=== PATIENT | female | born 1990 | race Caucasian/White ===

== ENCOUNTER 2022-07-07 19:28 | Outpatient (CLI) | payer BC, SELFPAY ==
[2022-07-07 19:35] VITALS: TEMP 37.1
[2022-07-07 19:43] VITALS: BP 125/67; PULSE 106
[2022-07-07 19:54] VITALS: PULSE 108; O2SAT 98
[2022-07-07 19:58] VITALS: BP 132/68; PULSE 102
[2022-07-07 20:28] VITALS: BP 130/82; PULSE 99
[2022-07-07 20:38] LABS: Hematocrit 33.8 % (33.0-51.0); Hemoglobin* 11.4 gm/dL (12.0-16.0); Mean Corpuscular HGB Conc 34 gm/dL (32-36); Mean Corpuscular Hemoglobin 28 pg (26-34); Mean Corpuscular Volume 83 fL (80-100); Platelet Count* 381 K/uL (140-440); Red Blood Count 4.08 m/uL (4.00-5.20); White Blood Count* 14.65 K/uL (4.50-11.00)
[2022-07-07 20:41] LABS: Slide Review Reflex No
[2022-07-07 20:59] LABS: Total Protein Urine 10 mg/dL
[2022-07-07 20:59] LABS: Alanine Aminotransferase* 15 U/L (4-35); Aspartate Amino Transferase* 22 U/L (12-35); Blood Urea Nitrogen* 7 mg/dL (5-24); Creatinine* 0.5 mg/dL (0.5-1.5); Estimated Glomerular Filt Rate 127 ml/min
[2022-07-07 21:01] LABS: Creatinine Urine 51.8 mg/dL
[2022-07-07 21:15] LABS: INR 0.95 (0.91-1.10)
[2022-07-07 21:16] LABS: Fibrinogen* 565 mg/dL (200-450)
--- NOTE | 2022-07-07 21:49 | PC.OBNST ---
NST Note NST Note Start: 07/07/22 19:29 Freq: ONCE Status: Active Protocol: Document 07/07/22 21:31 [facility] (Rec: 07/07/22 21:34 [facility] [id number]) NST Note 11 Para (# of births) 6 EDC 08/08/22 Patient Presented with Complaint(s) of Headache,Other Other Complaints Pt experienced elevated BP's at home with RUQ pain and headache Reactive Yes Appropriate for Gestational Age Yes JEFF Pinzon Date 07/07/22 Reactive Yes Appropriate for Gestational Age Yes JEFF Moncada Date 07/07/22 OB NST charge Yes The provider's electronic signature indicates the NST is reactive/appropriate for gestational age. *Note to provider: If an addendum is required, open the patient's chart and click on the note under the Nurse/Allied Health tab.
== END 2022-07-07 21:33 | disposition home or self-care (01) ==
LOC: OB OUT 19:29 → OB 21:13
PROVIDERS: Family Medicine; PCP Family Medicine; Visit Provider Family Medicine
DX: O10.913 Unspecified pre-existing hypertension complicating pregnancy, third trimester (principal)
CPT/HCPCS: 36415; 59025; 82565; 82570; 84156; 84450; 84460; 84520; 85027; 85384; 85610; 99213

== ENCOUNTER 2022-07-18 19:55 | Inpatient (IN) | payer BC, SELFPAY ==
[2022-07-18] VITALS (13 sets, daily range): BP systolic 108–147; BP diastolic 62–90; PULSE 104–125; TEMP 36.8; O2SAT 97; BMI 47.3
[2022-07-18 17:58] LABS: Hematocrit 33.6 % (33.0-51.0); Hemoglobin* 11.4 gm/dL (12.0-16.0); Mean Corpuscular HGB Conc 34 gm/dL (32-36); Mean Corpuscular Hemoglobin 28 pg (26-34); Mean Corpuscular Volume 83 fL (80-100); Platelet Count* 353 K/uL (140-440); Red Blood Count 4.05 m/uL (4.00-5.20); White Blood Count* 14.21 K/uL (4.50-11.00)
[2022-07-18 18:23] LABS: Slide Review Reflex No
[2022-07-18 18:29] LABS: Alanine Aminotransferase* 10 U/L (4-35); Aspartate Amino Transferase* 19 U/L (12-35); Blood Urea Nitrogen* 9 mg/dL (5-24); Creatinine* 0.5 mg/dL (0.5-1.5); Estimated Glomerular Filt Rate 127 ml/min
[2022-07-18 18:30] LABS: Total Protein Urine 7 mg/dL
[2022-07-18 18:31] LABS: Creatinine Urine 94.1 mg/dL
--- NOTE | 2022-07-18 20:39 | P.OBHP_ITS ---
OB - H&P: HPI Labor/Induction History of Present Illness Date Seen: 07/18/22 Chief Complaint: The patient is a 31 year old 10 para 6036 at 37+0 weeks gestation by 1st trimester US, who presents with elevated BP readings. She had a BP of 138/91 in clinic this afternoon. She reports similar readings at home and she has a history of gestational HTN. She was observed at the center for 4 hours at continued to have elevated BP readings 140s/90s. She has a mild headache and tr leatha edema as well as RUQ pain. Labs including Creatinine, ALT, AST, prot/cr and CBC are normal. Chief complaint: Maternity : 10 Para: 6 Date of last menstrual period: 11/02/21 Estimated date of delivery: 08/09/22 Gestational age based on last menstrual period: 36 Indications for induction: induced hypertension Narrative: Shayla Murcia is a 31 year old 10 para 6036 at 37+0 weeks gestation by 1st trimester US, who presents with elevated BP readings. She had a BP of 138/91 in clinic this afternoon. She reports similar readings at home and she has a history of gestational HTN. She was observed at the center for 4 hours at continued to have elevated BP readings 140s/90s. She has a mild headache and trace edema as well as RUQ pain. Labs including Creatinine, ALT, AST, prot/cr and CBC are normal. History of Present Dating criteria: based on 1st trimester US only care: good care Ultrasounds: normal 1st trimester US and normal mid trimester US Abnormal ultrasound findings: LGA EFW 3316g on 07/12/22 (90%) complications: gestational hypertension Labs Blood type: 0 (-) negative Rubella: immune RPR/VDLR: nonreactive GBS status: negative HBsAG: negative Review of Systems Status of ROS: Reports: 6 or more systems reviewed and unremarkable except as noted in History and below Meds Home Medications and Allergies Home Medications Medication Instructions Recorded Confirmed Type albuterol sulfate 90 mcg/actuation 2 puff inhalation .as needed 07/07/22 07/18/22 History aerosol inhaler (Ventolin HFA) ondansetron 4 mg disintegrating 4 mg translingual .as needed 07/07/22 07/18/22 History tablet OB - H&P: Exam Physical Exam: Vital signs: Temp Pulse BP Pulse Ox 98.3 F 125 H 139/90 H 97 07/18/22 17:20 07/18/22 19:45 07/18/22 19:45 07/18/22 17:21 Constitutional: Constitutional: no acute distress Routine HEENT Exam: Head: Present atraumatic and normal inspection Eye: Present EOMI ENT: Present mucous membranes moist Routine Neck Exam: Neck: Present full ROM Routine Respiratory Exam: Respiratory: Present CTA bilaterally Routine Cardiovascular Exam: Cardiovascular: RRR Detailed Abdominal Exam: Comments: Gravid appropriate for gestational age, EFW 8# Detailed Labor and Delivery Exam: Dilation (cm): 1 Effacement (%): 50 Cervix position: mid Consistency: soft Contraction frequency (min): 0 Tachysystole: No Fetus (Single): Station: -3 Routine Neurological Exam: Present alert, oriented X3 and CN II-XII intact Routine Psychiatric Exam: Present normal affect and normal thought process OB - Results Labs Labs: Short CBC 07/18/22 Range/Units 17:50 WBC 14.21 H (4.50-11.00) K/uL Hgb 11.4 L (12.0-16.0) gm/dL Hct 33.6 (33.0-51.0) % Plt Count 353 (140-440) K/uL BMP 07/18/22 17:50 BUN 9 Creatinine 0.5 Liver Function 07/18/22 Range/Units 17:50 AST 19 (12-35) U/L ALT 10 (4-35) U/L OB - Problem Based A/P Additional Plan (1) Gestational hypertension: Status: Acute (2) Term : Status: Acute Plan Cook catheter placed with 60 mL in both intrauterine and intravaginal balloons. Start low dose pitocin at midnight. AROM vs pitocin induction in AM Delivery/Labor/Induction Plan Plan: induction Induction method: Intracervical balloon catheter
[2022-07-18 21:25] LABS: Basophils Percent Auto 0.1 % (0.0-3.0); Eosinophils Percent Auto 1.3 % (0.0-7.0); Hematocrit 33.8 % (33.0-51.0); Hemoglobin* 11.4 gm/dL (12.0-16.0); Immature Granulocytes Abs Auto 0.15 K/uL (0.00-0.30); Lymphocytes Percent Auto 18.1 % (20-44); Mean Corpuscular HGB Conc 34 gm/dL (32-36); Mean Corpuscular Hemoglobin 28 pg (26-34); Mean Corpuscular Volume 83 fL (80-100); Monocytes Percent Auto 5.3 % (0.0-11.0); Neutrophils Percent Auto 74.3 % (42.0-72.0); Platelet Count* 362 K/uL (140-440); RDW Coefficient of Variation % 13.2 % (11.5-15.5); Red Blood Count 4.08 m/uL (4.00-5.20); White Blood Count* 15.81 K/uL (4.50-11.00)
[2022-07-18 21:43] LABS: Slide Review Reflex No
[2022-07-18 22:42] LABS: SARS PCR* Negative SARS-CoV-2 (Negative)
[2022-07-19] VITALS (36 sets, daily range): BP systolic 106–151; BP diastolic 65–102; PULSE 75–146; RESP 16–18; TEMP 36.4–36.9; O2SAT 94–100
[2022-07-19] MEDS: TERBUTALINE 1 MG/ML INJ 0.25 MG SUBCUT (01:20)
[2022-07-19] MEDS: LACTATED RINGERS 1000 ML 1,000 ML 125 ML IV ×2 (01:56→05:28)
--- NOTE | 2022-07-19 02:02 | P.OBCN_ITS ---
OB - CN: HPI Date of Consult Time Seen by Provider: 01:10 Date Seen: 07/19/22 Patient: Cate Patient Consult date: 07/19/22 Requesting Physician: Sophia Solomon MD Primary Care Provider: Sophia Solomon MD Consult Narrative Narrative: Shayla is a 31 year old G 11 P 6 at 37 weeks 1 day gestation that was admitted to the Center on 07/18/22 for cervical ripening followed by induction of labor for gestational hypertension. Sophia Solomon MD placed a Cook catheter at approximately 8:00 p.m. which fell out at approximately midnight and when the nurse was going to start Pitocin she was concerned that the fetus may have turn to breech presentation. Dr. Solomon did a bedside ultrasound and noted the fetus to be in lakshmi breech presentation. Dr. Solomon asked for a consultation to discuss options: 1. attempt external cephalic version followed by Pitocin and rupture of membranes if successful. 2. If the ECV is not successful than primary low-transverse . Or 3. No ECV in go directly to primary low- transverse . The patient would prefer to attempt ECV as this is her 7th and she has had all vaginal deliveries. I reviewed how an ECV is performed and discussed risks with her including onset of labor, ruptured membranes, placental abruption and possible distress. Patient's questions were answered and consent form signed for ECV. See Dr. Solomon's history and physical note for complete details. History of Present complications: gestational hypertension History History 10 Elective abortions Para 6 Spontaneous abortions Hx # Term Pregnancies Ectopic pregnancies Hx # Pregnancies Multiple births Number of Living Children 6 Labs Blood type: 0 (-) negative Rubella: immune RPR/VDLR: nonreactive GBS status: negative HBsAG: negative OB Labs: Lab Assessment Start: 07/18/22 20:48 Freq: ONCE Status: Complete Protocol: PC.OBGBS Activity Type Activity Date Activity User E-sign Co-sign Detail Recorded Client Recorded Date Recorded By Document 07/18/22 20:52 [facility] [id number] 07/18/22 20:53 CUDDY 07/18/22 20:52 Lab Assessment GBS Negative Previous [place] with Invasive GBS No Does Patient Meet Criteria No No Treatment Needed OK Maternal Blood Type O Maternal RH Factor Negative Evaluate Maternal Rubella Immune Status Immune Hepatitis B Surface Antigen Negative Maternal HIV Status Negative Maternal Syphillis (RPR) Status Negative Are Labs Available Yes [facility] Medical History (Updated 07/19/22 @ 02:17 by Yolanda Spring MD) Breech presentation Successful external cephalic version Social History Smoking Status: Never smoker Meds Home Medications and Allergies Home Medications Medication Instructions Recorded Confirmed Type albuterol sulfate 90 mcg/actuation 2 puff inhalation .as needed 07/07/22 07/18/22 History aerosol inhaler (Ventolin HFA) ondansetron 4 mg disintegrating 4 mg translingual .as needed 07/07/22 07/18/22 History tablet Allergies Allergy/AdvReac Type Severity Reaction Status Date / Time amoxicillin Allergy Unknown Verified 07/18/22 21:40 latex Allergy Unknown Verified 07/18/22 21:40 paroxetine Allergy Unknown Verified 07/18/22 21:40 Penicillins Allergy Unknown Verified 07/18/22 21:40 sertraline Allergy Unknown Verified 07/18/22 21:40 vancomycin Allergy Unknown Verified 07/18/22 21:40 OB - H&P: Exam Physical Exam: Vital signs: Temp Pulse Resp BP Pulse Ox 98.5 F 102 H 18 147/94 H 97 07/19/22 00:54 07/19/22 00:54 07/19/22 00:54 07/19/22 00:54 07/18/22 17:21 Narrative: General: Pleasant, , comfortable woman in no acute distress. Vital signs per electronic medical record Bedside ultrasound: Breech presentation with head in the right upper quadrant with body in toward the left side of the patient with breech in the left lower quadrant. Procedure: External cephalic version Patient was placed in the dorsal supine position with a slight incline. The patient received terbutaline 10 minutes before attempting ECV. A large amount of ultrasound gel was placed in the patient's abdomen. Dr. Solomon placed her hands over the head and I placed my hand under the breech and attempted a counter clockwise roll. The head slowly moved to the pelvis and became vertex after 4 attempts. The patient tolerated this well. The heart beat was note to be in the 120's between each attempt at turning the baby. Verbal consent obtaine to perform AROM. TOCO: after terbutaline: Q5min. EFW: Baseline 130-140bpm, moderate variabilty. (+) accels. Variable deceler ations (After AROM) to the 110-120's. Category 2. SVE: 5/50%/-3 AROM: copious amount of clear fluid. OB - Results Labs Labs: Short CBC 07/18/22 07/18/22 Range/Units 17:50 21:16 WBC 14.21 H 15.81 H (4.50-11.00) K/uL Hgb 11.4 L 11.4 L (12.0-16.0) gm/dL Hct 33.6 33.8 (33.0-51.0) % Plt Count 353 362 (140-440) K/uL BMP 07/18/22 17:50 BUN 9 Creatinine 0.5 Liver Function 07/18/22 Range/Units 17:50 AST 19 (12-35) U/L ALT 10 (4-35) U/L OB - CN: A/P Assessment and Plan (1) Gestational hypertension: Status: Acute (2) Term : Status: Acute (3) Breech presentation: Status: Acute (4) Successful external cephalic version: Status: Acute
--- NOTE | 2022-07-19 02:32 | PM.OBPNL ---
Pain Control Date Seen: 07/19/22 Pain control: tolerating well Comments: After cook catheter came out, baby was noted to be breech. Underwent ECV with Dr. Spring. Subsequently, had AROM with copius clear fluid. Was initially having early and variable decels. Now reactive strip. Contractions Monitor mode: Internal Contraction frequency: 4 Contraction pattern: Regular Contraction intensity: Moderate Pelvic Exam Dilation (cm): 5 Effacement (%): 50 Station: -3 Fetus (Single) Amniotic Membrane Status: AROM status: Category l Assessment and Plan Assessment: induction ongoing Plan: continue present management and begin Pitocin augmentation
[2022-07-19] MEDS: OXYTOCIN 30 unit/500 ML in NS 30 UNIT/500 ML BAG IVPB (03:02)
[2022-07-19] MEDS: ONDANSETRON 2 MG/ML inj 4 MG IV ×2 (03:24→09:21)
[2022-07-19] MEDS: LACTATED RINGERS 1000 ML 1,000 ML 985 ML IV (06:50)
--- NOTE | 2022-07-19 09:34 | PM.OBPNL ---
Pain Control Date Seen: 07/19/22 Pain control: other Comments: Patient has been doing well overnight. Have been trying to augment labor with pitocin, however will get occasional runs of variable decelerations. Cervix remains largely unchanged over the last 4 hours, but contractions have not been consistently adequate. Contractions Monitor mode: Internal Contraction frequency: 3 Contraction pattern: Regular Contraction intensity: Moderate Pelvic Exam Dilation (cm): 8 Effacement (%): 80 Station: -1 Fetus (Single) Amniotic Membrane Status: AROM status: Category ll Comments: early and variable decelerations to 90 Assessment and Plan Pitocin rate (mU/min): 6 Assessment: active labor and induction ongoing Plan: continue present management
--- NOTE | 2022-07-19 11:40 | PM.OBPNL ---
Pain Control Time Seen by Provider: 11:40 Date Seen: 07/19/22 Pain control: tolerating well Comments: Patient has been doing well. IUPC came out and contractions difficult to monitor. Minimal cervical change, so IUPC replaced to help titrate pitocin. Patient now more uncomfortable with contractions. Contractions Monitor mode: Internal Contraction frequency: 3 Contraction pattern: Regular Contraction intensity: Moderate Pelvic Exam Dilation (cm): 8 Effacement (%): 80 Station: 0 Fetus (Single) Amniotic Membrane Status: AROM status: Category ll Comments: Occasional variable decels Assessment and Plan Pitocin rate (mU/min): 9 Assessment: active labor Plan: continue present management
[2022-07-19] MEDS: CEFAZOLIN 3 GM in 0.9 % SODIUM CHLORIDE Mini-bag 100 ML IVPB (14:25)
[2022-07-19] MEDS: KETOROLAC 30 MG/ML inj IVP ×2 (15:29→21:30)
--- NOTE | 2022-07-19 16:16 | P.NB_ITS ---
Nerve Block Nerve Block Time Seen by Provider: 15:45 Date Seen: 07/19/22 Type of block requested by surgeon for post-operative analgesia: TAP Side: bilateral Time out performed: Yes Verification of patient name: Yes Verification of date of : Yes Site marking: site marked Name of person performing procedure: CK Ruth Continuous monitoring Was continuous monitoring of O2 sat, B/P, quality assurance monitor body, recorded every 15 minutes?: Yes Procedure Checklist: sterile prep, needles and gloves Ultrasound guided. Images saved: Yes Medications given in 5ml increments after negative aspiration: Marcaine (20 ml/side 40 ml total) %: 0.25 mL: 40 Needle gauge: 20 and Exparel (5 ml/Side 10 total) mL: 10 Needle gauge: 20 Patient tolerated procedure well: Yes Block Charges Block Charge (with Pro Fee): TAP Bilateral Use of Ultrasound Machine for Block: Yes- US Guidance/pain block
--- NOTE | 2022-07-19 17:22 | PM.OBCN1 ---
OB - CN: HPI Date of Consult Date Seen: 07/19/22 Patient: Cate Patient Consult date: 07/19/22 Requesting Physician: Sophia Solomon MD Primary Care Provider: Sophia Solomon MD Consult Narrative Reason for consult: arrest of labor Narrative: The patient is a 31 year old G 11 P 6 woman at 37 weeks, 1 day gestation who presented yesterday for induction of labor for weeks gestation that was admitted to the Center on 07/18/22 for induction of labor for gestational hypertension. Thus far, she has had cervical ripening with Cook catheter. Fetus was then found to be in breech presentation, and had successful external cephalic version with Dr. Spring. Thereafter, she progressed to 8 cm dilation, but has not progressed beyond this for 5+ hours at the time of my assessment. Her contractions have been adequate. She is unmedicated. is otherwise complicated by/notable for: 1. Suspected LGA fetus on 07/12/2022, EFW 90% 2. Rh-negative status 3. Grand multiparity. 5 previous vaginal births. 4. Jehova's Witness; will not accept blood products 5. Asthma, treated with prn Hemabate. 6. Gestational HTN as above. Normal HELLP labs. She has received her care with Dr. Solomon this . tracing has been category 2, notable for intermittent variable decelerations, normal baseline and moderate variability. History of Present complications: gestational hypertension History History 10 Elective abortions Para 6 Spontaneous abortions Hx # Term Pregnancies Ectopic pregnancies Hx # Pregnancies Multiple births Number of Living Children 6 Labs Blood type: 0 (-) negative Rubella: immune RPR/VDLR: nonreactive GBS status: negative HBsAG: negative OB Labs: Lab Assessment Start: 07/18/22 20:48 Freq: ONCE Status: Complete Protocol: PC.OBGBS Activity Type Activity Date Activity User E-sign Co-sign Detail Recorded Client Recorded Date Recorded By Document 07/18/22 20:52 CUDDYH [id number] 07/18/22 20:53 CUDDY 07/18/22 20:52 Lab Assessment GBS Negative Previous with Invasive GBS No Does Patient Meet Criteria No No Treatment Needed OK Maternal Blood Type O Maternal RH Factor Negative Evaluate Maternal Rubella Immune Status Immune Hepatitis B Surface Antigen Negative Maternal HIV Status Negative Maternal Syphillis (RPR) Status Negative Are Labs Available Yes Review of Systems Narrative: positive for contraction PFSH PFSH Medical History (Updated 07/19/22 @ 17:51 by Manasa Maldonado MD) Arrest of dilation, delivered, current hospitalization Breech presentation Successful external cephalic version Social History Smoking Status: Never smoker Meds Home Medications and Allergies Home Medications Medication Instructions Recorded Confirmed Type albuterol sulfate 90 mcg/actuation 2 puff inhalation .as needed 07/07/22 07/18/22 History aerosol inhaler (Ventolin HFA) ondansetron 4 mg disintegrating 4 mg translingual .as needed 07/07/22 07/18/22 History tablet Allergies Allergy/AdvReac Type Severity Reaction Status Date / Time amoxicillin Allergy Unknown Verified 07/18/22 21:40 latex Allergy Unknown Verified 07/18/22 21:40 paroxetine Allergy Unknown Verified 07/18/22 21:40 Penicillins Allergy Unknown Verified 07/18/22 21:40 sertraline Allergy Unknown Verified 07/18/22 21:40 vancomycin Allergy Unknown Verified 07/18/22 21:40 OB - H&P: Exam Physical Exam: Vital signs: Temp Pulse Resp BP Pulse Ox O2 Del Method 98.1 F 75 16 114/79 94 07/19/22 16:43 07/19/22 17:13 07/19/22 17:13 07/19/22 17:13 07/19/22 17:13 07/19/22 16:26 Narrative: Appears tired and very uncomfortable. Tearful. Abdomen reveals infant on right side. Pannus folds over, impeding view of lower abdomen OB - Results Labs Labs: Short CBC 07/18/22 07/18/22 Range/Units 17:50 21:16 WBC 14.21 H 15.81 H (4.50-11.00) K/uL Hgb 11.4 L 11.4 L (12.0-16.0) gm/dL Hct 33.6 33.8 (33.0-51.0) % Plt Count 353 362 (140-440) K/uL BMP 07/18/22 17:50 BUN 9 Creatinine 0.5 Liver Function 08/17/22 Range/Units 17:50 AST 19 (12-35) U/L ALT 10 (4-35) U/L OB - CN: A/P Assessment and Plan (1) Gestational hypertension: Status: Acute (2) Term : Status: Acute (3) Arrest of dilation, delivered, current hospitalization: Status: Acute Assessment and Plan: She was offered option of epidural followed by another assessment of status versus primary delivery. She prefers the latter. We discussed risks of procedure, including bleeding, infection, damage to internal organs, uterine scarring, risks in future pregnancies, thromboembolism, risk of hemorrhage and transfusion. She confirms declination of needed transfusion. Consent form reviewed with and signed by patient.
[2022-07-19] MEDS: LACTATED RINGERS 1000 ML 500 ML IV (17:45)
--- NOTE | 2022-07-19 17:53 | P.OBPRC_ITS ---
Procedure Pre-op/Post-op diagnoses: Pre-Op/Post-Op Diagnoses Operation Date: 07/19/22 14:30 <No data on this case meets the specified criteria> Procedure Done: only (Neha patient for care) Procedure Details: Procedures Operation Date: 07/19/22 14:30 Actual Procedure Side Surgeon p Section Manasa Maldonado MD Estimated blood loss (mL): 545 Disposition: floor Anesthesia type: Spinal Complications: none Narrative: PREOPERATIVE DIAGNOSIS: Arrest of dilation POSTOPERATIVE DIAGNOSIS: Arrest of dilation PROCEDURE: Primary low-transverse section SURGEON: Manasa Maldonado MD DEWATERING FILTERING SUPERVISOR: Constance Mitchell MD ANESTHESIA: Spinal IV FLUIDS: 800 mL crystalloid QBL: 545 mL FINDINGS: 1. Male infant, cephalic 0P presentation, Apgars of 6 in 8, weight pending. Two true knots in cord. 2. Normal appearance to uterus, bilateral tubes and ovaries. Very thick lower uterine segment. COMPLICATIONS: None PROCEDURE IN DETAIL: Patient was taken to the operating room with IV running. She received cefazolin in preoperative prophylaxis. Spinal anesthesia was administered. Arrieta catheter was inserted. She was prepped and draped in the usual sterile fashion. Anesthesia was tested and found to be adequate. Her pannus was retracted upwards with an adhesive surgical drape. A low-transverse skin incision was made with a scalpel and carried through to the underlying layer of fascia with the scalpel. The subcutaneous fat was dissected off the underlying fascia with Bovie. The fascia was nicked in the midline with a scalpel, and this incision was extended laterally with scissors. The rectus muscles were in the midline. Peritoneum was identified and entered bluntly. Bovie was used to widen this opening laterally. Dick O retractor was inserted and tightened down, providing excellent visualization of the lower uterine segment. The bladder reflection was found to be well below the planned site for hysterotomy. Low-transverse uterine incision was made with a scalpel. The lower uterine segment was markedly thick. Incision was widened with scissors. The infant's head was grasped through the hysterotomy and delivered with the help of fundal pressure after several attempts. The remainder of the body delivered without incident. Cord was clamped and cut. was handed off to attending nurses. The placenta was delivered with gentle traction on the cord. The uterus was cleaned of all clots and debris with the dry lap pad. The hysterotomy was reapproximated with 0 Vicryl in a running, locked fashion. Second layer of the same suture was used in imbricating fashion to obtain hemostasis. Numerous [id number] sutures were required to obtain hemostasis, primarily superior to the superior aspect of the incision. The adnexa were examined and noted to be normal in appearance. The Dick O retractor was removed. The hysterotomy was reexamined and found to be hemostatic. The peritoneum was reapproximated with 2 0 Vicryl in a running fashion. The rectus muscles were examined and found to be hemostatic. The fascia was reapproximated with 0 Vicryl in a running fashion. Subcutaneous fat was irrigated and Bovie used on oozing vessels. The subcutaneous fat was reapproximated with 2 0 plain gut suture in an interrupted fashion. The skin was closed with a subcuticular stitch of 4-0 Monocryl. Silver dressing was applied above this. Patient tolerated procedure well was taken to recovery area in stable condition. OB Delivery Proc Additional Procedures Tubal Ligation at the time of : No
[2022-07-20] VITALS (11 sets, daily range): BP systolic 98–126; BP diastolic 70–86; PULSE 77–106; RESP 14–16; TEMP 36.4–36.9; O2SAT 97–100
[2022-07-20] MEDS: ACETAMINOPHEN 500 MG TABLET 1000 MG PO (00:54)
[2022-07-20] MEDS: LACTATED RINGERS 1000 ML 1,000 ML 125 ML IV (01:20)
[2022-07-20] MEDS: KETOROLAC 30 MG/ML inj IVP ×4 (03:41→21:58)
[2022-07-20] MEDS: ONDANSETRON 2 MG/ML inj 4 MG IV (05:59)
[2022-07-20 07:22] LABS: Basophils Percent Auto 0.1 % (0.0-3.0); Eosinophils Percent Auto 0.5 % (0.0-7.0); Hematocrit 29.4 % (33.0-51.0); Hemoglobin* 9.7 gm/dL (12.0-16.0); Immature Granulocytes Abs Auto 0.12 K/uL (0.00-0.30); Lymphocytes Percent Auto 15.1 % (20-44); Mean Corpuscular HGB Conc 33 gm/dL (32-36); Mean Corpuscular Hemoglobin 28 pg (26-34); Mean Corpuscular Volume 84 fL (80-100); Monocytes Percent Auto 6.8 % (0.0-11.0); Neutrophils Percent Auto 76.9 % (42.0-72.0); Platelet Count* 331 K/uL (140-440); RDW Coefficient of Variation % 13.3 % (11.5-15.5); Red Blood Count 3.49 m/uL (4.00-5.20); White Blood Count* 19.93 K/uL (4.50-11.00)
[2022-07-20 07:27] LABS: Slide Review Reflex No
[2022-07-20 07:33] LABS: Alanine Aminotransferase* 12 U/L (4-35); Aspartate Amino Transferase* 26 U/L (12-35); Blood Urea Nitrogen* 10 mg/dL (5-24); Creatinine* 0.7 mg/dL (0.5-1.5); Est. Creatinine Clearance* 102.86; Estimated Glomerular Filt Rate 117 ml/min
[2022-07-20] MEDS: ENOXAPARIN 40 MG/0.4 ML INJ SUBCUT (08:21)
--- NOTE | 2022-07-20 08:41 | PM.OBPNCS1 ---
OB - PN: A/P Assessment and Plan (1) Gestational hypertension: Status: Acute (2) Term : Status: Acute (3) Arrest of dilation, delivered, current hospitalization: Status: Acute Plan Plan: routine postop care OB - PN: Subj Subjective Date Seen: 07/20/22 Patient comments: no complaints, pain well controlled, tolerating diet and flatus present infant status: and doing well feeding status: exclusively Narrative: Day 1:? Vaginal Delivery at 37 and 1/7 weeks.? ?? Complications:? none? The patient feels well.? The pain is well controlled with current medications.? She has no new complaints.? Urinary output is adequate and she is voiding without difficulty.? Has a good appetite, is tolerating a general diet, is passing flatus, and has not had a bowel movement.? Has small amount of rubra lochia.? She is ambulating well.? 31 year old on day 1.? 1. cares.? 2. Anticipate discharge tomorrow.? OB - PN: Obj Exam Physical Exam: Vital signs: Temp Pulse Resp BP Pulse Ox O2 Del Method 98.3 F 81 16 107/74 97 07/20/22 00:52 07/20/22 04:55 07/20/22 04:55 07/20/22 04:55 07/20/22 04:55 07/20/22 04:55 Constitutional: Constitutional: no acute distress Routine HEENT Exam: Head: Present normal inspection Routine Neck Exam: Neck: Present full ROM Routine Respiratory Exam: Respiratory: Present CTA bilaterally Routine Cardiovascular Exam: Cardiovascular: Present RRR Routine Abdominal Exam: Abdominal: Present soft and tenderness Fundus: Present firm (U/1) Routine Exam: Perineum Description: Normal Routine Extremities Exam: Extremities: Present full ROM Routine Back/Spine/Pelvis Exam: Back/Spine: Present full ROM Routine Psychiatric Exam: Psychiatric: Present normal affect Wound Management: Drains: none Examination: Present dressed, clean, dry and intact Urinary Catheter Management: Urethral: Cath placed during this visit: yes Urethral indwelling: No Insertion date: 07/19/22 Insertion time: 14:25 OB - PN: Obj Data Labs Labs: Laboratory Results - last 24 hr 07/20/22 07/20/22 06:56 06:56 WBC 19.93 H RBC 3.49 L Hgb 9.7 L Hct 29.4 L MCV 84 MCH 28 MCHC 33 RDW Coeff of Claudette 13.3 Plt Count 331 Neut % (Auto) 76.9 H Lymph % (Auto) 15.1 L Harlan % (Auto) 6.8 Eos % (Auto) 0.5 Baso % (Auto) 0.1 Neut # (Auto) 15.30 H Lymph # (Auto) 3.00 H Harlan # (Auto) 1.40 H Eos # (Auto) 0.10 Baso # (Auto) 0.00 Abs Immat Gran (auto) 0.12 BUN 10 Creatinine 0.7 Estimated Creat Clear 102.86 Estimated GFR 117 AST 26 ALT 12
[2022-07-21] MEDS: ACETAMINOPHEN 500 MG TABLET 1000 MG PO ×2 (00:56→07:36)
[2022-07-21] MEDS: IBUPROFEN 600 MG TABLET PO (03:49)
[2022-07-21 04:20] VITALS: BP 121/87; PULSE 92; RESP 16; TEMP 36.8; O2SAT 98
[2022-07-21 07:45] VITALS: BP 113/78; PULSE 91; RESP 16; TEMP 36.5; O2SAT 98
[2022-07-21] MEDS: ENOXAPARIN 40 MG/0.4 ML INJ SUBCUT (08:38)
--- NOTE | 2022-07-21 10:12 | PM.OBDSCS1 ---
DS: Providers Provider Time Seen by Provider: 10:12 Date Seen: 07/21/22 Date of admission: 07/18/22 19:55 Primary care physician: Sophia Solomon MD Admitting Clinician: Sophia Solomon MD Consults: 07/19/22 03:36 Consult to Physician [CONS] Routine Comment: Consulting Provider: Yolanda Spring Has provider been notified: Yes Attending Physician on discharge: Sophia Solomon MD Date of Discharge: 07/21/22 DS: Diagnosis Discharge Diagnosis (1) S/P primary low transverse : Status: Acute (2) Arrest of dilation, delivered, current hospitalization: Status: Acute (3) Anemia due to acute blood loss: Status: Acute (4) Gestational hypertension: Status: Acute (5) Morbid obesity with BMI of 45.0-49.9, adult: Status: Acute DS: Medications Discharge Medications Other Medication Instructions: See discharge medication list Exam Narrative: Exam Narrative: Discharge Examination GENERAL APPEARANCE: normal affect, alert, no distress MOOD: appropriate CHEST: clear to auscultation HEART: regular rate and rhythm ABDOMEN: soft, non-tender the uterine fundus is at 2cm below Umbilicus, Midline and is appropriate for the stage of recovery. PERINEUM: no edema of the perineum EXTREMITIES: normal and no edema INCISION: Silver-containing dressing dry and intact. LOCHIA: minimal rubra. Const: Vital Signs, click to edit/add: Vital Signs - 24 hr 07/20/22 12:00 07/20/22 11:00 07/20/22 12:00 Temperature 97.8 F Pulse Rate [Pulse Oximeter] 97 Respiratory Rate 16 16 16 Blood Pressure [Ri ght Arm] 106/76 Pulse Oximetry 98 Oxygen Delivery Me thod Room Air 07/20/22 13:00 07/20/22 17:00 07/20/22 21:51 Temperature 98 F 97.6 F Pulse Rate [Pulse Oximeter] 106 H 104 H Respiratory Rate 16 16 16 Blood Pressure [Ri ght Arm] 123/82 126/86 Pulse Oximetry 98 99 Oxygen Delivery Me thod Room Air Room Air 07/21/22 04:20 07/21/22 07:45 Temperature 98.3 F 97.7 F Pulse Rate [Pulse Oximeter] 92 91 Respiratory Rate 16 16 Blood Pressure [Ri ght Arm] 121/87 113/78 Pulse Oximetry 98 98 Oxygen Delivery Me thod Room Air Room Air OB - DS: Summary Hospital Course Hospital Course: The patient is a 31 year old G 11 P 604 now 7 at 37 and 1/7 weeks gestation that was admitted to the Center on 07/18/22 for induction of labor due to gestational hypertension. She underwent a primary low-transverse section for arrest of dilation on 07/19/2022. True knot x2 in the umbilical cord noted at delivery. She delivered a viable male infant. She is breast and bottle feeding. the patient has done well. She would like to be discharged home today. Time spent discussing smoking cessation with patient: more than 10 minutes Peripartum Data Procedures: Procedures Operation Date: 07/19/22 14:30 Actual Procedure Side Surgeon p Section Manasa Maldonado MD complications: none [facility] Gender: Male Status at Discharge Overall status at discharge: patient is progressing back to baseline Time Spent with Patient Time attestation: Total time spent providing and/or coordinating discharge services: Time spent: Less than 30 minutes Discharge Plan Discharge Disposition: Home, Self-Care Date of Admission: 07/18/22 19:55 Attending Provider on Discharge: Yolanda Spring Consulting Providers: Yolanda Spring Primary Care Provider: Sophia Solomon Condition: Stable Anticipated Discharge Date/Time: 07/21/22 12:04 Discharge Medications: New ferrous sulfate 325 mg (65 mg iron) Tablet 325 mg PO DAILYWM 60 Days Qty: 100 0RF docusate sodium 100 mg Capsule 100 mg PO BID PRN (Reason: constipation) 30 Days Qty: 100 0RF ibuprofen 600 mg Tablet 600 mg PO Q6H PRN (Reason: Pain) 14 Days Qty: 30 0RF oxycodone 5 mg Tablet 5 mg PO 3XD PRN (Reason: Pain) 7 Days Qty: 21 0RF Continued albuterol sulfate [Ventolin HFA] 90 mcg/actuation HFA aerosol inhaler 2 puff INHALATION .as needed Label Comments: INHALE TWO PUFFS BY MOUTH FOUR TIMES A DAY NEEDED Discontinued ondansetron 4 mg tablet,disintegrating 4 mg translingual .as needed Label Comments: DISSOLVE ONE TABLET BY MOUTH EVERY 8 HOURS NEEDED FOR NAUSEA AND VOMITING Discharge Orders: Discharge Order (Routine); Ordered 07/21/22 Ordered By: Yolanda Spring Patient Education: (DC) Activity Restrictions/Additional Instructions: Discharge instructions were reviewed with the patient including signs and symptoms of infection and home going medications. Lifting Restrictions: 20 pounds for [address] while taking narcotic pain meds: 1-2 weeks. Nothing vaginally for 6 weeks: No tampons or intercourse. No high impact or core exercises for 6 weeks. Walking and walking up and down stairs are safe right away. Off Work or School for 8 weeks. Symptoms to report to doctor: -Bleeding that saturates more than one pad per hour ?-Passing clots larger than the size of a golf ball ?-Pain not relieved by prescribed medication ?-Fever above 100.4 degrees Fahrenheit ?-A foul vaginal odor ?-Difficulty in emotions, mood and functions ?-Thoughts of hurting yourself and/or ?-Painful, reddened area in your breast ?-Any drainage, redness or tenderness in your IV/epidural site ?-Severe headache that doesn't improve after taking medications ?-Changes in vision, including temporary loss of vision, blurred vision, and/or light sensitivity ?-Upper abdominal pain (usually under ribs on the right side) ?-Decrease in urination or painful, frequent urinating ?-Chest pain ?-Shortness of breath ?-Tenderness or pain with redness and/swelling in the calf(s) of your leg Follow Up with Yolanda Spring MD or Krystina Mitchell MD in on 08/02/2022 at [facility]. For an incision check. Then follow up with Dr. Sophia Solomon for your 6 week visit. consultation services are available to all mothers and babies for the first year after delivery.? To make an appointment, please call [phone]. Discharge Diet: Regular Follow Up Appointments: Yolanda Spring MD [Staff Physician] - Krystina Mitchell MD [Staff Physician] - Sophia Solomon MD [Primary Care Provider] - Forms: [employer] Info Instructions
--- NOTE | 2022-08-01 11:15 | W.ANESCHARGE ---
Anesthesia Charges Start Date/Time Anesthesia Start Date: 08/01/22 Anesthesia Start Time: 14:17 Stop Date/Time Anesthesia Stop Date: 07/19/22 Anesthesia Stop Time: 16:02 Summary Emergency: Yes
== END 2022-07-21 10:35 | disposition home or self-care (01) | DRG 540 ==
LOC: OB OUT 19:55 → OB 19:55
PROVIDERS: Obstetrics & Gynecology; Admitting Provider Family Medicine; PCP Family Medicine; Visit Provider Family Medicine
PROC: 10D00Z1 Extraction of Products of Conception, Low, Open Approach (ICD-10-PCS; CPT 59514; principal; 2022-07-19 14:15)
DX: O13.4 Gestational [pregnancy-induced] hypertension without significant proteinuria, complicating childbirth (principal); O32.1XX0 Maternal care for breech presentation, not applicable or unspecified; O62.0 Primary inadequate contractions; O99.214 Obesity complicating childbirth; E66.9 Obesity, unspecified; O90.81 Anemia of the puerperium; D62 Acute posthemorrhagic anemia; Z3A.37 37 weeks gestation of pregnancy; Z37.0 Single live birth
CPT/HCPCS: 1961; 36415; 59200; 59412; 64488; 76815; 76942; 82565; 82570; 84156; 84450; 84460; 84520; 85018; 85025; 85027; 86850; 86900; 86901; 87635; 88307; 99140; A9270; C1726; C9290; J0690; J1100; J1200; J1650; J1885; J2274; J2370; J2405; J2590; J2765; J3105; J3490; J7120